=== PATIENT | male | born 1970 | race African-American/Black ===

== ENCOUNTER 2018-09-01 03:56 | Emergency (ER) | payer SELFPAY ==
[~2018-09-01] VITALS: Ht 172.7 cm; Wt 98.0 kg
[~2018-09-01 03:56] MED LIST: BUSP30TA2 PO; DIVA500T3 PO; FLUO40CA8 PO; HYDR25TA PO; LISI1TAB9 PO; MIRT15TA6 PO
[2018-09-01] MEDS ORDERED: IBUPROFEN 600MG TABLET PO ONE (05:45)
[2018-09-01 07:05] VITALS: BP 130/71
== END 2018-09-01 08:26 | disposition home or self-care (01) ==
LOC: ER 03:56
DX: S99.811A Other specified injuries of right ankle, initial encounter (principal); F17.200 Nicotine dependence, unspecified, uncomplicated; Z88.8 Allergy status to other drugs, medicaments and biological substances; Z79.899 Other long term (current) drug therapy; Y08.89XA Assault by other specified means, initial encounter; Y93.89 Activity, other specified; Y92.89 Other specified places as the place of occurrence of the external cause; Y99.8 Other external cause status
CPT/HCPCS: 73610; 73630; 99284

== ENCOUNTER 2021-04-14 11:06 | Emergency (ER) | payer OTHER ==
[~2021-04-14] VITALS: Ht 172.7 cm; Wt 102.0 kg
[2021-04-14] MEDS ORDERED: HYDROCODONE/ACETAMINOPHEN 5/325MG TABLET PO STA (11:19)
[2021-04-14] MEDS ORDERED: IBUP-2029 PO (13:12)
[2021-04-14] MEDS ORDERED: T3 PO (13:12)
[2021-04-14 13:48] VITALS: BP 131/69
== END 2021-04-14 13:48 | disposition home or self-care (01) ==
LOC: ER 11:06
DX: S93.402A Sprain of unspecified ligament of left ankle, initial encounter (principal); Z79.899 Other long term (current) drug therapy; Z88.8 Allergy status to other drugs, medicaments and biological substances; V89.9XXA Person injured in unspecified vehicle accident, initial encounter; Y93.89 Activity, other specified; Y92.89 Other specified places as the place of occurrence of the external cause; Y99.8 Other external cause status
CPT/HCPCS: 73610; 99283

== ENCOUNTER 2023-10-13 11:23 | Emergency (ER) | payer OTHER, MEDICAID ==
[~2023-10-13] VITALS: Ht 177.8 cm; Wt 110.0 kg
[~2023-10-13 11:23] MED LIST changes: +IBUP-2029 PO; +MIRT-89 PO; -MIRT15TA6 PO; +T3 PO
[2023-10-13 11:25] VITALS: O2SAT 99
[2023-10-13] MEDS ORDERED: FENTANYL CITRATE/PF 50MCG/ML 2ML VIAL IV ONE (12:30)
[2023-10-13] MEDS ORDERED: SODIUM CHLORIDE 0.9% 500 ML IV ONE (13:45)
[2023-10-13] MEDS ORDERED: KETOROLAC 30MG/ML VIAL IV ONE (15:45)
[2023-10-13] MEDS ORDERED: ONDANSETRON HCL 4MG/2ML INJ IV ONE (15:45)
[2023-10-13] MEDS ORDERED: MORPHINE SULFATE 4 MG/ML CPJ (NOT FOR IM USE) IV ONE (15:45)
[2023-10-13] MEDS ORDERED: IBUP-2028 MT (15:46)
[2023-10-13] MEDS ORDERED: TOPUD PO (15:46)
[2023-10-13] MEDS ORDERED: MORP15TA67 MT (15:46)
[2023-10-13 17:32] VITALS: BP 154/86; PULSE 54; RESP 16; TEMP 98.1
== END 2023-10-13 17:36 | disposition home or self-care (01) ==
LOC: ER 11:23
DX: S82.202A Unspecified fracture of shaft of left tibia, initial encounter for closed fracture (principal); E78.00 Pure hypercholesterolemia, unspecified; Z87.891 Personal history of nicotine dependence; Z79.899 Other long term (current) drug therapy; V49.49XA Driver injured in collision with other motor vehicles in traffic accident, initial encounter; Y93.89 Activity, other specified; Y92.89 Other specified places as the place of occurrence of the external cause; Y99.8 Other external cause status
CPT/HCPCS: 73552; 72170; 73562; 73590; 73610; 96361; 96374; 96375; 99285; J3010; J1885; J2405; J2270; J7040; Z7610 ×2; L1830